=== PATIENT | female | born 1970 | race African-American/Black ===

== ENCOUNTER → 2016-07-12 | Outpatient (CLI) | payer SELFPAY ==
[~2016-07-12] MED LIST: CEPH-583 PO; CYCL5TAB PO; ONDA4TAB4 PO; OXYC1TAB8 PO
[2016-07-12 12:00] LABS: BASOPHILS % (AUTO) 0.6 % (0-2); EOSINOPHILS # (AUTO) 0.1 T/MM3 (0-0.5); EOSINOPHILS % (AUTO) 1.7 % (0-4); HGB - HEMOGLOBIN 13.7 GM/DL (12-16); IMMATURE GRANULOCYTE # (AUTO) 0.01 T/MM3 (0.00-0.03); IMMATURE GRANULOCYTE % (AUTO) 0.1 % (0.0-0.5); LYMPHOCYTES # (AUTO) 3.1 T/MM3 (1-4.8); LYMPHOCYTES % (AUTO) 43.8 % (23-45); MEAN CORPUSCULAR HGB 29.3 UUG (26-34); MEAN CORPUSCULAR HGB CONC(MCHC 32.6 GM/DL (31-37); MEAN CORPUSCULAR VOLUME 89.9 UM3 (80-100); MEAN PLATELET VOLUME 10.2 UM3 (9.4-12.4); MONOCYTES # (AUTO) 0.4 T/MM3 (0-0.8); NEUTROPHILS #(AUTO)-ABSOLUTE 3.4 T/MM3 (1.8-7.7); NEUTROPHILS % (AUTO) 47.8 % (33-66); RED BLOOD COUNT 4.67 M/MM3 (4.00-5.20); WBC - WHITE BLOOD COUNT 7.1 T/MM3 (4.5-11.0)
== END ==
LOC: WC.BC 10:39
PROVIDERS: ATTEND Surgery Plastic and Reconstructive Surgery
DX: Z12.31 Encounter for screening mammogram for malignant neoplasm of breast (principal); T85.49XA Other mechanical complication of breast prosthesis and implant, initial encounter; Y83.8 Other surgical procedures as the cause of abnormal reaction of the patient, or of later complication, without mention of misadventure at the time of the procedure; Z98.82 Breast implant status; Z01.818 Encounter for other preprocedural examination
CPT/HCPCS: 36415; 85025

== ENCOUNTER 2016-07-13 08:48 | Day surgery (SDC) | payer SELFPAY ==
[~2016-07-13] VITALS: Ht 168.9 cm; Wt 82.0 kg
[2016-07-13] VITALS (20 sets, daily range): BP systolic 118–147; BP diastolic 58–98; PULSE 64–107; RESP 13–20; TEMP 97.2–98; O2SAT 92–100; Ht 168.9 cm; Wt 82.0 kg
[~2016-07-13 08:48] MED LIST changes: +BACITRACIN INJ. 50,000 UNITS VL INJ ONE; +CEFAZOLIN 1 GRAM INJECTION IV ONE; -CEPH-583 PO; -CYCL5TAB PO; +LIDOCAINE 1% (10mg/ml) 2ml SDV INJ ONE; +LIDOCAINE 1%/EPI 1:100,000 20ml MDV ONE; -ONDA4TAB4 PO; -OXYC1TAB8 PO; +SODIUM CHLORIDE (Bacteriostatic) 30ml VIAL IJ ONE
[2016-07-13] MEDS: LR 1,000 ML IV SCH ×2 (09:57→14:09)
--- NOTE | 2016-07-13 10:33 | ANESPREOP ---
Anesthesia Record Date and Time DATE: 07/13/16 TIME: 10:29 Pre-Op Diagnosis deflation of implants Proposed Surgical Procedure REMOVAL &REPLACEMENT OF SALINE BREAST IMPLANTS NPO since: 2199 Allergies: Coded Allergies: No Known Allergies (Unverified , 07/13/16) Ht/Wt/BMI Height: 5 ' 6.50 " Weight: 82.000 kg BMI: 28.7 kg/m2 Vital Signs Date Time Temp Pulse Resp B/P Pulse Ox O2 Delivery O2 Flow Rate FiO2 07/13/16 10:08 97.6 07/13/16 09:26 75 16 07/13/16 09:06 121/66 98 Room Air Medications Inpatient Medications Current Medications Medications (Trade) Dose Ordered Sig/Alicia Start Time Stop Time Status Last Admin Dose Admin Lactated Ringer's (Lactated Ringers) 1,000 ml @ 50 mls/hr Q20H 07/13/16 07:00 07/13/16 09:57 50 MLS/HR No Active Prescriptions or Reported Meds Currently on Beta Debbi: No Medical/Surgical History Anesthesia PMH: Denies: *Diabetes, Anesthesia Reactions (NO AIRWAY ISSUES), Arthritis, Cancer, Clotting Problems, Glaucoma, Malignant Hyperthermia, Renal Disease, Sleep Apnea, Thyroid Disease Smoking Status: Never smoker Has pt. smoked today?: No Use Chewing Tobacco?: No Second Hand Exposure: No Substance Use Type: does not use Alcohol Intake: a few times a month, other Last Drink: hours (ago) (72) HX of Last Menstrual Period: 2005 Past Surgical History Orthopedic Surgeries: Abdominal Surgeries: Genitourinary Surgeries: Cardiac Surgeries: Endocrine Surgeries: Reproductive Surgeries: - HYST 2005 Neurological Surgeries: Ear Surgeries: Nose Surgeries: Throat Surgeries: Other Surgeries: Yes - BREAST IMPLANTS Anesthesia Adverse Reactions: FOUND none Family Hx of Anesthesia Advers: none Hx of Motion Sickness: No Pertinent Findings EKG Rhythm: Sinus Rhythm Physical Exam Respiratory: Bilat breath sounds equal, Lungs clear Cardiovascular: FOUND Regular rate, rhythm, FOUND No murmur Airway Assessment Mallampati Score: I TMD: 3 Fingerbreadths Neck Extension: Good Overall Assessment: No Airway Concerns ASA: 1 Plan Anesthesia Plan: LMA Discussion Discussed risks/options/alternatives of anesthesia and questions answered. Patient consents. Nursing pain assessment noted. Present: Family Member Attestation Statement Prior to the delivery of any anesthetic medication, I examined the patient, developed the plan, obtained the patient's consent and discussed the risk and benefits of the procedure with the patient/guardian. CHRISTIANNE YAN CRNA Jul 13, 2016 10:32
[2016-07-13] MEDS ORDERED: LIDOCAINE 1%/EPI 1:100,000 20ml MDV ONE (10:36)
[2016-07-13] MEDS ORDERED: SALINE FLUSH 10ml SYRINGE ONE ×2 (10:43→10:48)
[2016-07-13] MEDS ORDERED: CEFAZOLIN 1 GRAM INJECTION ONE (10:44)
[2016-07-13] MEDS ORDERED: MIDAZOLAM 2mg/2ml INJECTION IV ONE (10:45)
[2016-07-13] MEDS ORDERED: ROCURONIUM 50mg/5ml INJECTION IV ONE (10:54)
[2016-07-13] MEDS ORDERED: FENTANYL 250mcg/5ml INJECTION ONE (10:54)
[2016-07-13] MEDS ORDERED: PROPOFOL 200mg 20 ML IV ONE (10:54)
[2016-07-13] MEDS ORDERED: DEXAMETHASONE 4mg/ml - 1ml INJECTION ONE (10:54)
[2016-07-13] MEDS ORDERED: LIDOCAINE 2% (20mg/ml) 5ml PF SDV ONE (11:00)
[2016-07-13] MEDS ORDERED: HYDROMORPHONE 2mg/ml INJECTION ONE (12:01)
[2016-07-13] MEDS ORDERED: ONDANSETRON 4mg/2ml INJECTION ONE (13:14)
[2016-07-13] MEDS ORDERED: SUGAMMADEX 200 MG/2 ML INJECTION IV ONE (13:15)
[2016-07-13] MEDS ORDERED: OXYCODONE/APAP 5mg/325mg TABLET PO PRN (13:45)
[2016-07-13] MEDS ORDERED: ATROPINE 1mg/10ml Syringe IV PRN (13:45)
[2016-07-13] MEDS ORDERED: ONDANSETRON 4mg/2ml INJECTION IV PRN (13:45)
[2016-07-13] MEDS ORDERED: CYCL5TAB PO (13:49)
[2016-07-13] MEDS ORDERED: OXYC1TAB8 PO (13:49)
[2016-07-13] MEDS ORDERED: CEPH-583 PO (13:49)
[2016-07-13] MEDS ORDERED: ONDA4TAB4 PO (13:49)
--- NOTE | 2016-07-13 13:55 | PDPROCED ---
Procedure Note Date 07/13/16 Procedure Name Bilateral exchange of saline breast implants with capsulotomies: [place] Smooth Round MP Saline implants: R 375 inflated to 400; L 325 inflated to 300 Procedure Detail Preop dx: Extracapsular rupture of right breast saline implant; intracapsular rupture of left breast saline implant Postop dx: Same Anesthesia: General Case: Clean Complications: None MAUREEN WELLS MD Jul 13, 2016 13:48
--- NOTE | 2016-07-13 14:17 | ANESPO ---
Post-Op Note Date 07/13/16 Time: 14:17 Status Pt Participated in Evaluation: Pt participated in person Vital Signs Date Time Temp Pulse Resp B/P Pulse Ox O2 Delivery O2 Flow Rate FiO2 07/13/16 14:10 97.2 82 14 127/75 92 Room Air Respiratory Function: Airway patent, Regular respirations Cardiovascular Function: Regular pulse Telemetry Pattern: SR Mental Status: Alert/oriented Pain Level Intensity: 0 Hydration: Taking po fluids Complications during Recovery None apparent Follow-Up Instructions Instructions Per Surgeon CHRISTIANNE YAN CRNA Jul 13, 2016 14:17
--- NOTE | 2016-07-13 21:06 | OPNOTEF ---
DATE OF SURGERY July 13, 2016 SURGEON Samantha Max MD PREOPERATIVE DIAGNOSIS Extracapsular rupture of right breast saline implant. Intracapsular rupture of left breast saline implant. POSTOPERATIVE DIAGNOSIS Extracapsular rupture of right breast saline implant. Intracapsular rupture of left breast saline implant. OPERATION Bilateral exchange of saline breast implants with capsulotomies: [place] Smooth Round Moderate Plus saline implants. Right was 375, inflated to 400. Left was 325, inflated to 300. ANESTHESIA General. INDICATIONS The patient is a 45-year-old G5, P4 woman who presented for the complaint of an obvious deflation of her right breast saline implant. The patient initially had bilateral breast implants placed in 1997 by pa in [place]. Over the past several years, the right breast has slowly deflated - the left remained intact. She is currently a cup size D and would like to be a bit larger, perhaps a DD. She believes they were placed muscularly. She underwent a mammogram yesterday which revealed an extracapsular rupture on the right and an intracapsular rupture on the left. On exam, her breasts were asymmetric with the right being significantly smaller than the left. She had grade 3 ptosis bilaterally and the left breast had some slight firmness. She did not wish to proceed with a lift at this time. In detailed discussion with the patient preoperatively, the risks, benefits and alternatives of exchange of the implants were reviewed including, although not limited to, bleeding, infection, poor or keloid scarring, residual asymmetry, capsular contracture, rippling, need for routine followup possibly including MRI, alteration of nipple sensation, rupture, need for implant exchange in the future. The patient understood and wished to proceed. NARRATIVE OF PROCEDURE The patient was marked preoperatively and then, after suitable general anesthesia had been obtained, the breasts were prepped and draped in the usual sterile manner. Of note, she received 1 g Ancef preoperatively and wore sequential stockings throughout. The incisions were then infiltrated with 1% lidocaine with epinephrine. Next, the previous subareolar incision was made sharply and carried down through the subcutaneous tissues. The previous breast implant pocket was then identified and the deflated implant was removed. Of note, the implants were in the subglandular position and were 300 ml. A wide capsulotomy was performed and a 375 mL sizer was placed into the prepared pocket and inflated in varying sizes to 450 mL. It was thus deemed advisable to proceed with [place] Round Moderate Plus saline implant inflated to 400 cc. Attention was turned to the left breast where identical dissection and removal of the implant was performed. As noted above, there was an intracapsular rupture of the saline implant. Another capsulotomy was performed and sizers were again placed. At this time, there was a significant difference in residual breast tissue of the right versus the left and it was deemed advisable to proceed with a 325 mL implant. Various amounts of inflation were tried with saline and the final decision was to proceed with 375 implant on the right and 325 on the left. Thus, the sizers were removed, the wounds were copiously irrigated with triple antibiotic solution, and saline implants were placed into the prepared pockets. They were then inflated as noted above and the fill tubes were removed. The wounds were then closed in three layers using interrupted buried sutures of 3-0 PDS, interrupted 4-0 Monocryl and then a running subcuticular suture of 4-0 Monocryl. Benzoin and Steri-Strips were applied as well as a dry sterile dressing, Mefix tape, fluffs and a surgical bra. The patient was then extubated and brought to the recovery room in stable condition. Estimated blood loss was less than 30 mL. The case was clean. There were no specimens. [facility]ENTER[facility]erner
== END 2016-07-13 16:00 | disposition home or self-care (01) ==
LOC: SCU 08:48
PROVIDERS: ATTEND Surgery Plastic and Reconstructive Surgery
DX: Z41.1 Encounter for cosmetic surgery (principal); T85.44XA Capsular contracture of breast implant, initial encounter; T85.49XA Other mechanical complication of breast prosthesis and implant, initial encounter; N64.81 Ptosis of breast; Z90.710 Acquired absence of both cervix and uterus; E65 Localized adiposity; Q79.59 Other congenital malformations of abdominal wall